=== PATIENT | female | born 1990 | race Caucasian/White ===

== ENCOUNTER 2023-06-22 19:55 | Inpatient (IN) | payer BC ==
[2023-06-22 21:22] VITALS: BMI 27.8
[2023-06-22] MEDS ORDERED: ELECTROLYTE-148 SOLN 1,000 ML IV SCH (21:30)
[2023-06-22 21:57] LABS: BASO % 0.3 % (0-2.0); HEMATOCRIT 34.2 % (32.4-45.2); LYMPH % 10.5 % (8-40); MCH 26.2 pg (25.7-33.7); MCHC 32.1 g/dl (32.0-36.0); MEAN CELL VOLUME 81.6 fl (80-96); MONO % 5.4 % (3.8-10.2); NEUT % 83.8 % (42.8-82.8); PLATELET COUNT 318 10^3/uL (134-434); RBC 4.19 M/mm3 (3.60-5.2); WHITE BLOOD COUNT 14.2 K/mm3 (4.0-10.0)
[2023-06-22 22:05] LABS: INR 0.97 (0.83-1.09); PROTHROMBIN TIME (PATIENT) 11.3 SEC (9.7-13.0)
[2023-06-22 22:07] LABS: ACTIVATED PTT 24.5 SECONDS (25.2-36.5)
[2023-06-22] MEDS ORDERED: FENTANYL/BUPIVACAINE/NS/PF - PCEA - 50 ML DISP.SYRIN EP ONE (22:15)
[2023-06-22 22:24] LABS: POTASSIUM 3.9 mmol/L (3.5-5.1)
[2023-06-22] MEDS ORDERED: BUPIVACAINE HCL/PF 0.25% (2.5MG/ML) 10 ML VIAL ONE (22:24)
[2023-06-22] MEDS ORDERED: FENTANYL CITRATE/PF 50 MCG/ML VIAL ONE (22:24)
[2023-06-22 22:26] LABS: CALCIUM 8.9 mg/dL (8.5-10.1)
[2023-06-22 22:27] LABS: ALBUMIN 2.6 g/dl (3.4-5.0); BLOOD UREA NITROGEN 7.8 mg/dL (7-18)
[2023-06-22 22:30] LABS: CREATININE 0.6 mg/dL (0.55-1.3)
[2023-06-22 22:32] LABS: BILIRUBIN,TOTAL 0.2 mg/dL (0.2-1); TOT PROT 6.6 g/dl (6.4-8.2)
[2023-06-22] MEDS ORDERED: NALOXONE HCL 0.4 MG/ML VIAL IVPUSH PRN (22:51)
[2023-06-22] MEDS ORDERED: FENTANYL/BUPIVACAINE/NS/PF - PCEA - 50 ML DISP.SYRIN EP SCH (23:00)
[2023-06-22 23:24] LABS: HEPATITIS B SURFACE AG MATERN NON-REACTIVE (NONREACTIVE); SYPHILIS W/ RPR CONF NON-REACTIVE (NONREACTIVE)
[2023-06-22 23:52] LABS: HIV INTERPRETATION NEGATIVE (NEGATIVE)
[2023-06-23 00:11] LABS: METHADONE, UR NEGATIVE (NEGATIVE); PHENCYCLIDINE,URINE NEGATIVE (NEGATIVE)
[2023-06-23 00:12] LABS: OPIATES, URI NEGATIVE (NEGATIVE); URINE BARBITURATES NEGATIVE (NEGATIVE); URINE BENZODIAZEPINES NEGATIVE (NEGATIVE)
[2023-06-23 00:17] LABS: COCAINE, UR NEGATIVE (NEGATIVE); URINE AMPHETAMINES NEGATIVE (NEGATIVE)
[2023-06-23] MEDS ORDERED: OXYTOCIN 20 UNITS in 0.9% NS 20 UNIT/1,000 ML INFUS.BAG IV ONE (02:44)
[2023-06-23] MEDS ORDERED: OXYTOCIN 30 UNITS in 0.9% NS 30 UNIT/500 ML INFUS.BAG IVPB ONE (03:45)
[2023-06-23] MEDS ORDERED: LIDOCAINE HCL 1% PRESERVATIVE FREE - 30ML VIAL ONE (04:21)
[2023-06-23] MEDS ORDERED: BISACODYL 10 MG SUPP.RECT RC PRN (04:43)
[2023-06-23] MEDS ORDERED: oxyCODONE HCL 5 MG TABLET PO PRN (04:43)
[2023-06-23] MEDS ORDERED: BENZOCAINE 20% 57 GM BOTTLE TP PRN (04:43)
[2023-06-23] MEDS ORDERED: WITCH HAZEL 50% (TUCKS) 40 PAD/JAR PAD TP PRN (04:43)
[2023-06-23] MEDS ORDERED: METHYLERGONOVINE MALEATE 0.2 MG/1 ML AMP IM PRN (04:43)
[2023-06-23] MEDS ORDERED: BENZOCAINE 28 GM HEMORRHOIDAL OINTMENT TP PRN (04:43)
[2023-06-23] MEDS ORDERED: OXYTOCIN 30 UNITS in 0.9% NS 30 UNIT/500 ML INFUS.BAG IVPB SCH (04:45)
[2023-06-23] MEDS ORDERED: OXYTOCIN 20 UNITS in 0.9% NS 20 UNIT/1,000 ML INFUS.BAG IV SCH (04:45)
[2023-06-23] MEDS ORDERED: IBUPROFEN 600 MG TABLET (FP) PO ONE (06:13)
[2023-06-23] MEDS: IBUPROFEN 600 MG TABLET (FP) PO PRN ×4 (06:15→22:25)
[2023-06-23] MEDS ORDERED: ACETAMINOPHEN 325 MG TABLET (FP) ONE (07:29)
[2023-06-23] MEDS: ACETAMINOPHEN 325 MG TABLET (FP) PO PRN ×2 (07:31→18:31)
[2023-06-23] MEDS: SENNOSIDES/DOCUSATE COMBO (SENNA PLUS) TABLET (UD) PO PRN (22:24)
[2023-06-24] MEDS: ACETAMINOPHEN 325 MG TABLET (FP) PO PRN ×2 (02:57→10:49)
[2023-06-24] MEDS: IBUPROFEN 600 MG TABLET (FP) PO PRN ×3 (07:36→19:52)
[2023-06-24 07:57] LABS: BASO % 0.5 % (0-2.0); EOS % 0.1 % (0-4.5); HEMOGLOBIN 8.2 GM/dL (10.7-15.3); LYMPH % 6.3 % (8-40); MCH 27.1 pg (25.7-33.7); MCHC 32.6 g/dl (32.0-36.0); MEAN CELL VOLUME 83.2 fl (80-96); MONO % 8.2 % (3.8-10.2); NEUT % 84.9 % (42.8-82.8); PLATELET COUNT 213 10^3/uL (134-434); RBC 3.01 M/mm3 (3.60-5.2); RDW 14.9 % (11.6-15.6); WHITE BLOOD COUNT 9.1 K/mm3 (4.0-10.0)
[2023-06-24] MEDS: SENNOSIDES/DOCUSATE COMBO (SENNA PLUS) TABLET (UD) PO PRN (19:52)
[2023-06-24] MEDS ORDERED: SENNOSIDES/DOCUSATE COMBO (SENNA PLUS) TABLET (UD) PO PRN (22:00)
[2023-06-25] MEDS: IBUPROFEN 600 MG TABLET (FP) PO PRN ×2 (02:07→09:33)
[2023-06-25 09:08] VITALS: BP 106/73; PULSE 94; RESP 18; TEMP 98
[2023-06-25] MEDS ORDERED: guaiFENesin 600 MG TABLET.ER (FP) PO SCH (10:00)
== END 2023-06-25 11:30 | disposition home or self-care (01) | DRG 807 ==
LOC: JDEL 19:55 → JLDR 21:00 → J3W 06-23 08:43
PROVIDERS: ADMIT Specialist; ATTEND Specialist
PROC: 10907ZC Drainage of Amniotic Fluid, Therapeutic from Products of Conception, Via Natural or Artificial Opening (ICD-10-PCS; 2023-06-22)
PROC: 10E0XZZ Delivery of Products of Conception, External Approach (ICD-10-PCS; principal; 2023-06-23)
PROC: 0W8NXZZ Division of Female Perineum, External Approach (ICD-10-PCS; 2023-06-23)
DX: O99.892 Other specified diseases and conditions complicating childbirth (principal); Z37.0 Single live birth; R00.0 Tachycardia, unspecified; Z3A.38 38 weeks gestation of pregnancy
CPT/HCPCS: 36415; 80053; 80307; 85025; 85610; 85730; 86780; 86850; 86900; 86901; 87340; 87389